=== PATIENT | female | born 1975 | race Hispanic/Latino ===

== ENCOUNTER 2020-10-27 18:50 | Emergency (ER) | payer OTHER ==
[~2020-10-27] VITALS: Ht 149.9 cm; Wt 82.1 kg
[2020-10-27] MEDS ORDERED: IBUPROFEN IB200 MG PO (19:59)
[2020-10-27] MEDS ORDERED: ULTRAM 50MG50 MG PO (19:59)
[2020-10-27] MEDS ORDERED: ACETAMINOPHEN500 MG PO (19:59)
[2020-10-27] MEDS ORDERED: ACETAMINOPHEN 325 MG TAB PO ONE (20:00)
== END 2020-10-27 21:15 | disposition home or self-care (01) ==
LOC: FSED 18:55
DX: S16.1XXA Strain of muscle, fascia and tendon at neck level, initial encounter (principal); R51.9 Headache, unspecified; M79.645 Pain in left finger(s); V43.52XA Car driver injured in collision with other type car in traffic accident, initial encounter; Y92.488 Other paved roadways as the place of occurrence of the external cause
CPT/HCPCS: 70450; 72125; 99283

== ENCOUNTER 2021-06-09 21:35 | Emergency (ER) | payer BC ==
[~2021-06-09] VITALS: Ht 149.9 cm; Wt 82.1 kg
[~2021-06-09 21:35] MED LIST: ACETAMINOPHEN500 MG PO; IBUPROFEN IB200 MG PO; ULTRAM 50MG50 MG PO
[2021-06-09] MEDS ORDERED: KETOROLAC TROMETHAMINE 60 MG/2 ML VIAL IM ONE (22:00)
[2021-06-09] MEDS ORDERED: CEPHALEXIN500 MG PO (23:40)
[2021-06-09] MEDS ORDERED: ULTRAM50 MG PO (23:40)
[2021-06-09 23:44] VITALS: BP 100/63
== END 2021-06-09 23:51 | disposition home or self-care (01) ==
LOC: ER 21:39
DX: I82.612 Acute embolism and thrombosis of superficial veins of left upper extremity (principal); D64.9 Anemia, unspecified; M50.20 Other cervical disc displacement, unspecified cervical region
CPT/HCPCS: 93971; 99282; J1885

== ENCOUNTER 2024-05-07 21:47 | Emergency (ER) | payer BC ==
[~2024-05-07] VITALS: Ht 149.9 cm; Wt 72.6 kg
[~2024-05-07 21:47] MED LIST changes: +CEPHALEXIN500 MG PO; +HYDROCODON-ACE1 EA12 PO; +ULTRAM50 MG PO
[2024-05-07] MEDS: SODIUM CHLORIDE 0.9% 1000ML 1,000 ML IV STA (22:32)
[2024-05-07 23:00] LABS: COLOR,URINE YELLOW (YELLOW)
[2024-05-07 23:01] LABS: AMPHETAMINES SCREEN,URINE NEGATIVE (NEGATIVE); BENZODIAZEPINES SCREEN,URINE NEGATIVE (NEGATIVE); CLARITY,URINE SL CLOUDY (CLEAR); GLUCOSE, URINE NEGATIVE (NEGATIVE); KETONES,URINE NEGATIVE (NEGATIVE); LEUKOCYTE ESTERASE ,URINE TRACE (NEGATIVE); NITRITE,URINE POSITIVE (NEGATIVE); OPIATES SCREEN,URINE NEGATIVE (NEGATIVE); PH,URINE 7 (5 - 7); PHENCYCLIDINE SCREEN,URINE NEGATIVE (NEGATIVE); PROTEIN,URINE DIPSTICK NEGATIVE (NEGATIVE)
[2024-05-07 23:02] LABS: BILIRUBIN,URINE NEGATIVE (NEGATIVE); CANNABINOIDS SCREEN,URINE POSITIVE (NEGATIVE); METHADONE SCREEN, URINE NEGATIVE (NEGATIVE); URINE UROBILINOGEN 1 mg/dL (0.2 - 1)
[2024-05-07 23:03] LABS: PREGNANCY TEST, URINE NEGATIVE (NEGATIVE)
[2024-05-07 23:09] LABS: COVID 19 ANTIGEN NOT DETECTED (NEGATIVE)
[2024-05-07 23:16] LABS: BASOPHILS % 0.5 % (0.0-1.0); EOSINOPHILS # (AUTO) 0.2 (0.0-0.4); EOSINOPHILS % 2.3 % (0.0-6.0); HEMATOCRIT 23.3 % (34.2-44.1); LYMPHOCYTES % 37.9 % (18.0-39.1); MEAN CORPUSCULAR HEMOGLOBIN 18.1 pg (28-32); MEAN CORPUSCULAR HGB CONC 26.6 g/dL (31-35); MEAN CORPUSCULAR VOLUME 67.9 fL (81-99); MONOCYTES # (AUTO) 0.6 (0.2-0.8); MONOCYTES % 7.5 % (4.4-11.3); NEUTROPHILS # (AUTO) 4.1 (2.1-6.9); NEUTROPHILS % 51.4 % (38.7-80.0); PLATELET COUNT 347 x10e3/uL (140-360); RED BLOOD COUNT 3.43 x10e6/uL (3.6-5.1); RED CELL DISTRIBUTION WIDTH 19.4 % (11.7-14.4); WHITE BLOOD COUNT 7.96 x10e3/uL (4.8-10.8)
[2024-05-07 23:19] LABS: HEMOGLOBIN 6.2 g/dL (12.0-16.0)
[2024-05-07 23:22] LABS: TROPONIN I < 0.05 ng/mL (0.0-0.40)
[2024-05-07 23:36] LABS: ALANINE AMINOTRANSFERASE 23 IU/L (0-55); ALBUMIN 3.8 g/dL (3.5-5.0); ALBUMIN/GLOBULIN RATIO 1.1 (0.8-2.0); ALKALINE PHOSPHATASE 69 IU/L (40-150); ANION GAP 15.4 mmol/L (8-16); BILIRUBIN,TOTAL 0.4 mg/dL (0.2-1.2); BLOOD UREA NITROGEN 10 mg/dL (7-26); BUN/CREATININE RATIO 13 (6-25); CALCIUM 8.9 mg/dL (8.4-10.2); CARBON DIOXIDE 20 mmol/L (22-29); CHLORIDE 107 mmol/L (98-107); CREATINE KINASE 1818 IU/L (29-168); CREATININE, SERUM 0.77 mg/dL (0.57-1.11); EST GLOMERULAR FILTRATION RATE 95 ML/MIN (>=60); GLUCOSE 102 mg/dL (74-118); SODIUM 139 mmol/L (136-145); TOTAL PROTEIN 7.4 g/dL (6.5-8.1)
[2024-05-07 23:37] LABS: LIPASE 13 U/L (8-78)
[2024-05-07 23:41] LABS: POTASSIUM 3.4 mmol/L (3.5-5.1)
[2024-05-08] MEDS: SODIUM CHLORIDE 0.9% 250ML 250 ML IV ONE (00:50)
[2024-05-08 01:21] LABS: BACTERIA,URINE MANY /HPF; EPITHELIAL CELLS,URINE FEW /LPF; RBC,URINE 0-5 /HPF (0-5)
[2024-05-08 04:59] LABS: ANISOCYTOSIS MODERATE; HYPOCHROMASIA MODERATE; MICROCYTOSIS MODERATE; POIKILOCYTOSIS MODERATE; RBC MORPHOLOGY COMMENT ABNORMAL
[2024-05-08 05:00] LABS: ELLIPTOCYTE, RBC MODERATE; OVALOCYTES FEW; STOMATOCYTES MODERATE
[2024-05-08 05:01] LABS: PLATELET ESTIMATE ADEQUATE; PLATELET MORPHOLOGY COMMENT NORMAL; TEAR DROP CELLS FEW
[2024-05-08] MEDS ORDERED: CIPRO500 MG PO (05:23)
[2024-05-08 06:15] VITALS: PULSE 68; RESP 17; TEMP 97.9; O2SAT 99
== END 2024-05-08 06:18 | disposition home or self-care (01) ==
LOC: ER 21:52
DX: D64.9 Anemia, unspecified (principal); N39.0 Urinary tract infection, site not specified; R74.8 Abnormal levels of other serum enzymes; Z11.52 Encounter for screening for COVID-19; R94.31 Abnormal electrocardiogram [ECG] [EKG]
CPT/HCPCS: 0223U; 36415; 70450; 71045; 80053; 80307; 81001; 81025; 82550; 83690; 83880; 84484; 85025; 86850; 86900; 86920; 87400; 93005; 99284; J7030; J7050; P9016

== ENCOUNTER 2024-08-14 17:55 | Emergency (ER) | payer BC, OTHER ==
[~2024-08-14] VITALS: Ht 149.9 cm; Wt 72.6 kg
[~2024-08-14 17:55] MED LIST changes: +CIPRO500 MG PO
[2024-08-14 18:27] VITALS: PULSE 75; RESP 18; TEMP 98.7
[2024-08-14] MEDS: ONDANSETRON HCL INJ 2MG/ML 2ML 2 MG/ML VIAL IV STA (19:15)
[2024-08-14] MEDS: SODIUM CHLORIDE 0.9% 1000ML 1,000 ML IV STA (19:15)
[2024-08-14] MEDS: FAMOTIDINE 20 MG/2 ML VIAL IV STA (19:15)
[2024-08-14 19:18] LABS: BASOPHILS % 0.3 % (0.0-1.0); EOSINOPHILS # (AUTO) 0.1 (0.0-0.4); EOSINOPHILS % 0.6 % (0.0-6.0); HEMATOCRIT 29.5 % (34.2-44.1); HEMOGLOBIN 8.8 g/dL (12.0-16.0); LYMPHOCYTES # (AUTO) 3.2 (1.0-3.2); LYMPHOCYTES % 25.4 % (18.0-39.1); MEAN CORPUSCULAR HEMOGLOBIN 22.4 pg (28-32); MEAN CORPUSCULAR HGB CONC 29.8 g/dL (31-35); MEAN CORPUSCULAR VOLUME 75.3 fL (81-99); MONOCYTES # (AUTO) 0.6 (0.2-0.8); NEUTROPHILS # (AUTO) 8.5 (2.1-6.9); NEUTROPHILS % 68.5 % (38.7-80.0); PLATELET COUNT 416 x10e3/uL (140-360); RED BLOOD COUNT 3.92 x10e6/uL (3.6-5.1); RED CELL DISTRIBUTION WIDTH 17.1 % (11.7-14.4); WHITE BLOOD COUNT 12.46 x10e3/uL (4.8-10.8)
[2024-08-14 19:32] LABS: ALBUMIN 3.9 g/dL (3.5-5.0); ALBUMIN/GLOBULIN RATIO 1.1 (0.8-2.0); ANION GAP 13.6 mmol/L (8-16); BILIRUBIN,TOTAL 0.3 mg/dL (0.2-1.2); CALCIUM 8.6 mg/dL (8.4-10.2); CREATININE, SERUM 0.72 mg/dL (0.57-1.11); POTASSIUM 3.6 mmol/L (3.5-5.1); TOTAL PROTEIN 7.6 g/dL (6.5-8.1)
[2024-08-14] MEDS ORDERED: IOPAMIDOL 370 MG/ML 100 ML INFUS..BTL INJ ONE (20:08)
[2024-08-14 20:11] LABS: BILIRUBIN,URINE NEGATIVE (NEGATIVE); CLARITY,URINE CLOUDY (CLEAR); COLOR,URINE YELLOW (YELLOW); GLUCOSE, URINE NEGATIVE (NEGATIVE); KETONES,URINE NEGATIVE (NEGATIVE); LEUKOCYTE ESTERASE ,URINE TRACE (NEGATIVE); NITRITE,URINE POSITIVE (NEGATIVE); PH,URINE 5.5 (5 - 7); PROTEIN,URINE DIPSTICK NEGATIVE (NEGATIVE); URINE UROBILINOGEN 0.2 mg/dL (0.2 - 1)
[2024-08-14 20:12] LABS: PREGNANCY TEST, URINE NEGATIVE (NEGATIVE)
[2024-08-14 20:41] LABS: BACTERIA,URINE MANY /HPF; WBC,URINE (MAN) 21-50 /HPF (0-5)
[2024-08-14 20:42] LABS: EPITHELIAL CELLS,URINE MODERATE /LPF; TRANSITIONAL EPI CELLS,URINE FEW
[2024-08-14] MEDS ORDERED: ONDANSETRON ODT4 MG PO (21:12)
[2024-08-14] MEDS ORDERED: DICYCLOMINE HCL10 MG PO (21:12)
[2024-08-14] MEDS ORDERED: PROTONIX20 MG PO (21:12)
[2024-08-14 21:23] VITALS: BP 104/71; O2SAT 100
== END 2024-08-14 21:21 | disposition home or self-care (01) ==
LOC: ER 18:01
DX: R10.33 Periumbilical pain (principal); N39.0 Urinary tract infection, site not specified; R11.2 Nausea with vomiting, unspecified; D64.9 Anemia, unspecified; K21.9 Gastro-esophageal reflux disease without esophagitis; Z98.84 Bariatric surgery status
CPT/HCPCS: 36415; 74177; 80053; 81001; 81025; 83690; 85025; 99284; J2405; J7030; Q9967